=== PATIENT | male | born 1955 | race Caucasian/White ===

== ENCOUNTER 2021-04-06 12:12 | Emergency (ER) | payer OTHER ==
[~2021-04-06 12:12] MED LIST: ELIQUIS2.5 MG PO
[2021-04-06 13:03] LABS: RED BLOOD COUNT 4.63 M/UL (4.20-5.50); WHITE BLOOD COUNT 7.6 K/UL (4.5-11.0)
[2021-04-06 13:23] LABS: BUN/CREATININE RATIO 13 (0-10)
[2021-04-06] MEDS ORDERED: ELIQUIS 5 MG TAB5 MG PO (14:49)
[2021-04-06] MEDS ORDERED: LASIX20 MG PO (14:49)
== END 2021-04-06 12:20 | disposition home or self-care (01) ==
LOC: ER1 12:12
PROVIDERS: Nurse Practitioner
DX: R60.0 Localized edema (principal); Z76.0 Encounter for issue of repeat prescription
CPT/HCPCS: 71045; 80053; 82550; 82553; 83874; 83880; 84484; 85025; 93970; 99284

== ENCOUNTER → 2021-04-11 | Outpatient (CLI) | payer MEDICARE ==
[~2021-04-11] MED LIST changes: +ELIQUIS 5 MG TAB5 MG PO; +LASIX20 MG PO
== END ==
LOC: RAD 18:01
DX: M54.5 Low back pain (principal); M51.36 Other intervertebral disc degeneration, lumbar region
CPT/HCPCS: 72110

== ENCOUNTER → 2021-05-06 | Outpatient (CLI) | payer MEDICARE | LOC: ECHO 04-27 08:30 | DX: I10 Essential (primary) hypertension (principal); R60.9 Edema, unspecified | CPT/HCPCS: ECHO; 93306 ==

== ENCOUNTER → 2021-05-25 | Outpatient (CLI) | payer MEDICARE | LOC: RAD 10:50 | DX: M25.561 Pain in right knee (principal); M25.562 Pain in left knee; M17.0 Bilateral primary osteoarthritis of knee | CPT/HCPCS: 73564 ==